=== PATIENT | male | born 1975 | race Caucasian/White ===

== ENCOUNTER 2018-09-08 15:47 | Inpatient (IN) | payer SELFPAY ==
[2018-09-08 18:18] LABS: #Basophils 0.1 thou/uL (0.0-0.2); #Eosinphils 0.4 thou/uL (0.0-0.7); #Lymphocytes 2.6 thou/uL (1.20-3.40); #Monocytes 0.6 thou/uL (0.11-0.59); #Neutrophils 5.7 thou/uL (1.40-6.50); %Basophils 0.8 % (0.0-1.0); %Eosinophils 3.9 % (0.0-10.0); %Lymphocytes 27.9 % (21.0-51.0); %Monocytes 6.2 % (0.0-10.0); %Neutrophils 61.2 % (42.0-75.0); Hemoglobin 14.3 g/dL (14.0-18.0); Mean Corpuscular HGB CONC 35.2 g/dL (32.0-36.0); Mean Corpuscular Hemoglobin 29.7 pg (27.0-31.0); Mean Corpuscular Volume 84.5 fL (78.0-98.0); Mean Platelet Volume 6.8 fL (7.4-10.4); Platelet Count 233 thou/uL (130-400); RBC Distribution Width 12.1 % (11.5-14.5); Red Blood Cell (RBC) Count 4.82 mill/uL (4.70-6.10); White Blood Cell (WBC) Count 9.2 thou/uL (4.8-10.8)
[2018-09-08] MEDS ORDERED: Lorazepam 2 MG/ML VIAL ONE ×2 (18:20→22:53)
[2018-09-08 18:37] LABS: ALT (SGPT) 18 U/L (8-55); AST (SGOT) 15 U/L (5-34); Alkaline Phosphatase 80 U/L (40-150); Anion Gap 15 mmol/L (10-20); BUN (Urea Nitrogen) 13 mg/dL (8.9-20.6); Bilirubin, Total 0.3 mg/dL (0.2-1.2); CK (CPK) 100 U/L (30-200); Calc. Creatinine Clearance 0 mL/min (70-130); Calcium 9.7 mg/dL (7.8-10.44); Carbon Dioxide 24 mmol/L (22-29); Chloride 96 mmol/L (98-107); Estimated GFR-MDRD Greater than 90; Globulin 3.4 g/dL (2.4-3.5); Glucose 216 mg/dL (70-105); Potassium 4.4 mmol/L (3.5-5.1); Protein, Total 7.4 g/dL (6.0-8.3); Sodium 131 mmol/L (136-145)
[2018-09-08 19:44] LABS: Acetaminophen Less than 6.0 mcg/mL (10.0-30.0); Alcohol Less than 10 mg/dL (Less than 10); Salicylate Less than 8.0 mg/dL (15.0-30.0)
[2018-09-08] MEDS ORDERED: Fentanyl 100 MCG/2 ML VIAL ONE (21:44)
[2018-09-08 21:49] LABS: Bilirubin Negative (Negative); Blood, Urine Trace (Negative); Clarity CLEAR (Clear); Glucose, Urine (Dipstick) >=1000 mg/dL (Negative); Leukocyte Negative (Negative); Nitrite Negative (Negative); Protein, Urine (Dipstick) 100 mg/dL (Neg-Trace); Urobilinogen 0.2 mg/dL (0.2-1.0); pH, Urine 5.5 (5.0-9.0)
[2018-09-08 21:51] LABS: Bacteria/HPF None Seen HPF (None Seen); Hyaline Casts/LPF 0-3 HYALINE CAST LPF (0-3 Hyaline); Pathc Cast-AUWi Flag 0.14 (0-2.49); RBC/HPF None Seen HPF (0-3); Squamous Epithelial None Seen HPF (0-3); WBC/HPF None Seen HPF (0-3)
[2018-09-08 21:58] LABS: Amphetamine Not Detected (NotDetected); Barbiturates Screen Not Detected (NotDetected); Benzodiazepine Screen Not Detected (NotDetected); Cocaine Metabolite Screen Not Detected (NotDetected); Medtox Control Line Valid? VALID (VALID); Medtox Reader # READER 4; Methadone Not Detected (NotDetected); Methamphetamine Not Detected (NotDetected); Opiate Screen Detected (NotDetected); Oxycodone Screen Not Detected (NotDetected); Phencyclidine (PCP) Not Detected (NotDetected); THC/Cannabinoid Screen Not Detected (NotDetected); Tricyclic Screen Not Detected (NotDetected)
[2018-09-08] MEDS ORDERED: Morphine 2 MG/ML SYRINGE SLOW IVP PRN (22:26)
[2018-09-08] MEDS ORDERED: traMADol HCl 50 MG TAB PO PRN (22:26)
[2018-09-08] MEDS ORDERED: HYDROcodone/Acetaminophen 10/325 mg Tablet PO PRN ×2 (22:26)
[2018-09-08] MEDS ORDERED: diphenhydrAMINE 50 MG/ML VIAL IVP PRN (22:26)
[2018-09-08] MEDS ORDERED: Ondansetron PF 4 MG/2 ML Vial IVP PRN (22:26)
[2018-09-08] MEDS ORDERED: Promethazine 25 MG TAB PO PRN (22:26)
--- NOTE | 2018-09-08 22:34 | MRI ---
CERVICAL SPINE MRI WITHOUT IV CONTRAST: 09/08/18 HISTORY: 43-year-old male with history of paresthesias of the hands bilaterally, weakness. There is severe generalized narrowing of the AP dimension of the spinal canal of the cervical spine f rom C2 down through C7 and T1. There is generalized disc osteophytosis and facet arthrosis. C2-C3: Moderate central canal and lateral recess stenosis. C3-C4: Severe central spinal canal and lateral recess stenosis and mild bilateral foraminal stenosis. C4-C5: Very severe central spinal canal and moderate lateral recess stenosis and mild bilateral ирина inal stenosis. C5-C6: Prominent central broad based disc osteophyte with very markedly severe central spinal canal s tenosis and severe cord compression. There may be some mild associated myelomalacia at this level. C6-C7: Diffuse disc osteophyte with severe central spinal canal and lateral recess stenosis without s ignificant foraminal stenosis. C7-T1: Central disc osteophyte with severe central spinal canal stenosis and lateral recess stenosis without significant foraminal stenosis. No abnormal marrow signal. Mild sinus mucosal disease. IMPRESSION: Very markedly narrowed AP dimension of the entire cervical spinal canal with multilevel variable chaitanya rity including up to very markedly severe canal and lateral recess stenosis most marked at C5-C6, fol lowed by C4-C5, C6-C7. There is a suggestion of mild myelomalacia at C5-C6. There is indention of the spinal cord at almost all levels with actual compressive changes of the spinal cord most marked at C 5-C6 followed by C6-C7. POS: [facility]
--- NOTE | 2018-09-08 22:49 | MRI ---
THORACIC SPINE MRI WITHOUT IV CONTRAST: 09/08/18 HISTORY: 43-year-old male with history of leg paralysis and numbness, T10 and below. Multiplanar and multisequence MRI examination of the thoracic spine is performed. No evidence for abn ormal marrow signal. There is overall generalized narrowing of the AP dimension of the thoracic spine spinal canal. There is multilevel disc osteophytosis as well as multilevel posterior ligamentum flav um hypertrophic changes resulting in multilevel variable severity canal stenosis. There is mild steno sis at T1-T2 and T2-T3 with more moderate stenosis particularly in the left paracentral aspect at T3- T4. Generalized lateral recess stenosis at T4-T5. Severe left lateral recess stenosis from prominent disc osteophyte at T5-T6 with some left foraminal stenosis. Central disc osteophyte at T6-T7 with mil d central canal stenosis. Prominent left paracentral disc osteophyte at T7-T8 with left lateral reces s stenosis. Central disc osteophyte at T7-T8 with moderate to severe central spinal canal stenosis an d some indention of the spinal cord. At T9-T10, there is left paracentral and right paracentral disc osteophytes with moderate to severe central canal and lateral recess stenosis and evidence for right foraminal stenosis. At T10-T11, there is prominent facet arthrosis with severe lateral recess stenosi s left greater than right. T11-T12 level is unremarkable. IMPRESSION: Overall fairly severe generalized narrowing of the AP dimension of the spinal canal with extensive mu ltilevel disc osteophytosis and facet arthrosis and ligamentum flavum hypertrophic changes with varia ble severity up to severe central canal, lateral recess, and foraminal stenosis at multiple levels th roughout the entire thoracic spine with sparing of the T11-T12 region. No spinal cord mass. No abnorm al marrow signal. POS: [facility]
[2018-09-08] MEDS ORDERED: Dexamethasone 4 mg/ml Vial ONE (22:53)
[2018-09-08 22:59] LABS: INR-International Normal Ratio 0.9; PTT 30.5 SEC (22.9-36.1); Prothrombin Time 12.5 SEC (12.0-14.7)
[2018-09-09] MEDS: Sodium Chloride 0.9% 1,000 ML IV SCH ×2 (00:30→18:53)
[2018-09-09] MEDS: Dexamethasone 4 mg/ml Vial SLOW IVP SCH ×3 (00:37→11:43)
[2018-09-09 01:06] VITALS: BMI 25.5
--- NOTE | 2018-09-09 01:29 | HP ---
HISTORY OF PRESENT ILLNESS: The patient is a 43-year-old male with past medical history of diabetes, who presents for evaluation of bilateral upper and lower extremity dysesthesias and difficulty walking. The patient reports 1 month ago, he had gradual onset of dysesthesias along the bilateral forearms and bilateral C6 pattern as well as throughout the lower extremities. This is also associated with mild weakness. He reports these symptoms have been progressing over the past month, but significantly worsened today when he tried to get out of bed at 1300 this afternoon. He reports he was unable to get out of bed. He suddenly slumped to the floor. He denies any bowel or bladder issues. He also reports some worsening of the symptoms with electric shock type sensation down the extremities with extension of his neck. He has been evaluated with MRI imaging of the cervical and thoracic spine in the emergency department and found to have significant and severe stenosis at C5-C6. PAST MEDICAL HISTORY: Type 2 diabetes. PAST SURGICAL HISTORY: SI joint fusion. SOCIAL HISTORY: The patient is a smoker. He does not drink or use any drugs. REVIEW OF SYSTEMS: Per HPI. ALLERGIES: HE HAS NO KNOWN DRUG ALLERGIES. PHYSICAL EXAMINATION: VITAL SIGNS: BP is 132/82, respirations 18, the patient is 98% on room air, pulse is 97, temperature is 98.6. CONSTITUTIONAL: Agitated. HEENT: Head is normocephalic, atraumatic. Eyes, PERRLA. Extraocular movements intact. ENT; oral mucosa is pink, intact, and moist. The patient has normal voice. NECK: Nontender to palpation. I did not attempt range of motion considering reproduction of his symptoms. RESPIRATORY: Symmetric chest expansion. No evidence of dyspnea. CARDIOVASCULAR: Regular rate and rhythm. MUSCULOSKELETAL: Good muscle tone in the bilateral upper and lower extremities. 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 He is, otherwise, 5/5 throughout the remainder of the upper extremities, biceps, triceps, and deltoid. He is slightly hyperreflexic over the triceps and biceps. He has a positive Lamberto sign over the lower extremities. He is significantly weak throughout 2/5 with plantar flexion, dorsiflexion, and over the proximal legs bilaterally. This is symmetric. He is slightly hyperreflexic over bilateral knee jerk reflexes. Negative clonus. NEUROLOGIC: A and O x4. He has significant weakness in the lower extremities and slight weakness in the upper extremities per my musculoskeletal exam. ASSESSMENT AND PLAN: This is a 43-year-old male with progressive dysesthesias of the upper extremities and lower extremities with significantly worsening weakness this afternoon. He was found to have severe stenosis at C5- C6. He also has cervical and thoracic stenosis to a lesser degree and multilevel degenerative disk disease at other levels. I will plan to admit the patient to the Med/Surg service where he will be treated with 10 mg of IV Decadron now and 4 q.6. I have also made the patient n.p.o. tonight. The patient is significantly agitated and wants to go outside to use tobacco products. I have prescribed him a nicotine patch as well as p.r.n. Ativan. We will consult the hospitalist for assistance in medical management. I have discussed this plan with Dr. Leigh, who is in agreement. Job ID: [id number] MTDD
--- NOTE | 2018-09-09 03:20 | CON ---
DATE OF CONSULTATION: CHIEF COMPLAINT: Acute weakness in the lower extremities. HISTORY OF PRESENT ILLNESS: The patient was somewhat sleepy. Had some difficulty giving us full medical history. The patient reports that he went to sleep, he woke up, his belly was spasming. He felt like his muscles across the top were spasming. There was no back pain or accidents recently to a certain extent. He reports he has developed sudden-onset weakness. He cannot tell if he can urinate, but there is no incontinence. The patient reports that he developed sudden onset of weakness in both lower extremities along with some numbness and ER physician stated that when he lifted his neck, he felt weird. He also stated that the patient had some numbness in the extremities as well. The patient received Ativan, therefore, he was sleepy by the time we were seeing the patient. PREVIOUS MEDICAL HISTORY: Positive for diabetes for 20 years with [id number] diabetes. SOCIAL HISTORY: He smokes 2 packs a day for 20 years. No alcohol. 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 There is no history of any drug use. FAMILY HISTORY: Negative for neurological disorders. Mother is 68. Father and the details of his health are unknown. He has 1 brother and 2 sisters. There is no history of diabetes or CVA. Lab workup at the time of my initial evaluation of this patient, the patient had CBC and Chem-20, all of which were within normal limits except for blood sugar, which was 255 and his urine tox was pending at that time. REVIEW OF SYSTEMS: Not very reliable, but neurological, positive for weakness. PHYSICAL EXAMINATION: VITAL SIGNS: His vital signs were per ER chart and they were reviewed, and they were within normal limits. GENERAL APPEARANCE: Well-built, well-nourished man, too sleepy, but wakes up and follow commands. Higher intellectual functions. Oriented to time, place, and person, but not very cooperative. There is a 2 x 2 cm right foot ulcer in the sole of his foot. CHEST: Clear vesicular breathing. CARDIOVASCULAR: Normal. NEUROLOGIC: Higher intellectual functions; somewhat sleepy patient, but oriented to place, person, and time. Cranial nerve examination 2 through 12 within normal limits. Pupils are reactive. No facial asymmetry noted and difficult to assess sensation. Normal hearing. The patient did not open his mouth well, tongue seems to be midline. Motor exam; bulk normal, tone is normal. Strength 4+ to 5-/5 in upper extremities. Difficult to assess individual muscle groups. He keeps falling asleep or has decreased effort. MUSCULOSKELETAL: Lower extremities, he is unable to raise his legs against gravity and sensory examination, he has a sensory level around T4 and his deep tendon reflexes were 1+ throughout. IMPRESSION: The patient with abnormal sensation and sudden onset of bilateral lower extremity weakness without any recent trauma or back pain. His examination showed a sensory level around T4 and significant weakness in both lower extremities and his sensory level at about T4 consistent with acute cord compression. Immediately, I requested that he have MRI of the cervical and thoracic spine, which was completed at the time of this dictation. I have also spoken to the ER physician, the patient had severe generalized narrowing of the AP dimension of the spinal canal with extensive multilevel disk osteophytosis and facet arthrosis and ligamentum flavum with variable severity with severe central canal lateral recess and foraminal stenosis at multiple levels throughout the entire thoracic spine including T11 to T12 region and his C-spine MRI shows acute very marked narrowed AP dimension of the entire cervical spine canal with multilevel variable severity including up to a markedly severe canal and lateral recess stenosis, most markedly at C5-C6, followed by C4-C5, C6-C7 with suggestion of mild myelomalacia at C5-C6. There is indentation of the spinal cord at almost all levels with actual compression of the spinal cord, most markedly at C5-C6, followed by C6-C7. I spoke to the ER physician and the patient was apparently taken to surgery. Please call Neurology if you have any further questions or concerns with this patient. Job ID: [id number] [facility]
[2018-09-09] MEDS: Lorazepam 2 MG/ML VIAL SLOW IVP PRN ×3 (05:00→23:48)
[2018-09-09] MEDS: Nicotine 21 MG PATCH TD SCH (08:35)
[2018-09-09] MEDS ORDERED: CEFAZOLIN 2 GM/50 ML-DEXTROSE 2 GM in Premix Bag 1 BAG IVPB SCH (13:15)
--- NOTE | 2018-09-09 15:00 | CON ---
DATE OF CONSULTATION: 09/09/2018 SUBJECTIVE: The patient was seen and examined. I agree with Noelle Wang's evaluation on 09/08/2018. The patient is a 43-year-old man with diabetes, who has not had a significant past spinal history, although he does get chiropractic adjustments. Two nights ago, he woke up with significant difficulties with walking and using his arms. His physical exam is consistent with fairly severe cervical myelopathy. Imaging of the cervical and thoracic spine reveals congenital spinal stenosis throughout the spine. While he has multiple lesions, the severe cervical stenosis is most pronounced between C5 and C7, and I suspect this is the cause of the current symptoms. I would recommend expeditious proceeding with decompression and stabilization from C5-C7 via both anterior and posterior approaches. We discussed the indication, risks, benefits, and alternatives of C5-C7 anterior and posterior decompression and fusion with him and his and they expressed understanding, wished to proceed. They understand this may not change the current myelopathy but should prevent further damage in the future. Job ID: [id number]
--- NOTE | 2018-09-09 15:01 | PDOC.PN ---
- Subjective Encounter Start Date: 09/09/18 Encounter Start Time: 11:00 Pt seen for management of medical comorbidities, including hyponatremia and diabetes mellitus. Denies chest pain. c/o pain in extremities. - Objective MAR Reviewed: Yes Vital Signs & Weight: Vital Signs (12 hours) Temp Pulse Resp BP Pulse Ox 09/09/18 11:03 98.5 F 120 H 18 124/72 97 09/09/18 08:00 96 09/09/18 07:43 98.1 F 113 H 16 135/87 96 09/09/18 04:45 98.2 F 98 16 140/82 99 09/09/18 04:00 98.2 F 99 16 144/86 H 99 Weight Weight 227 lb I&O: 09/08/18 09/09/18 09/10/18 06:59 06:59 06:59 Intake Total 451.5 Balance 451.5 Result Diagrams: 09/08/18 18:09 09/08/18 18:09 Additional Labs: Accuchecks 09/08/18 16:43 POC Glucose 255 H labs reviewed by me Phys Exam - Physical Examination Constitutional: NAD HEENT: moist MMs Neck: supple Respiratory: clear to auscultation bilateral Cardiovascular: RRR Gastrointestinal: soft weakness in all four extremities Psychiatric: normal affect Dx/Plan (1) Hyponatremia Code(s): E87.1 - HYPO-OSMOLALITY AND HYPONATREMIA Status: Acute Comment: mild, likely asymptomatic (2) Spinal stenosis in cervical region Code(s): M48.02 - SPINAL STENOSIS, CERVICAL REGION Status: Acute Comment: pt is admitted under neurosurgery (3) DM2 (diabetes mellitus, type 2) Status: Chronic Comment: start accuchecks, insulin sliding scale (pt takes janumet at home). - Plan * . Review of Systems - Review of Systems Cardiovascular: negative: chest pain, palpitations, orthopnea, paroxysmal nocturnal dyspnea, edema, light headedness Musculoskeletal: Arm Pain, Leg Pain Neurological: Weakness, Numbness. negative: Incoordination, Change in Speech, Confusion, Seizures - Medications/Allergies Allergies/Adverse Reactions: Allergies Allergy/AdvReac Type Severity Reaction Status Date / Time No Known Drug Allergies Allergy Verified 09/09/18 04:57 Medications: Current Medications Hydrocodone Bitart/Acetaminophen ([place] 10/325) 1 tab PO Q4H PRN PRN Reason: Mild Pain (1-3) Hydrocodone Bitart/Acetaminophen ([place] 10/325) 2 tab PO Q4H PRN PRN Reason: Moderate Pain (4-6) Al Hydroxide/Mg Hydroxide (Maalox) 30 ml PO Q4H PRN PRN Reason: Indigestion Dexamethasone (Decadron) 4 mg SLOW IVP Q6HR [facility] Last Admin: 09/09/18 11:43 Dose: 4 mg Diphenhydramine HCl (Benadryl) 25 mg IVP Q6H PRN PRN Reason: Itching Sodium Chloride (Normal Saline 0.9%) 1,000 mls @ 75 mls/hr IV .[id number] [facility] Last Admin: 09/09/18 00:30 Dose: 1,000 mls Cefazolin Sodium/Dextrose 2 gm (/ Device) 50 mls @ 100 mls/hr IVPB [facility] Stop: 09/10/18 13:16 Lorazepam (Ativan) 1 mg SLOW IVP Q4H PRN PRN Reason: Anxiety/Agitation Last Admin: 09/09/18 12:00 Dose: 1 mg Magnesium Hydroxide (Milk Of Magnesium) 30 ml PO Q12H PRN PRN Reason: Constipation Morphine Sulfate (Morphine) 2 mg SLOW IVP Q1H PRN PRN Reason: Moderate Breakthrough Pain Nicotine (Nicoderm Patch) 21 mg TD DAILY [facility] Last Admin: 09/09/18 08:35 Dose: 21 mg Ondansetron HCl (Zofran) 4 mg IVP DAILYPRN PRN PRN Reason: Nausea Promethazine HCl (Phenergan) 12.5 mg PO Q4H PRN PRN Reason: Nausea/Vomiting Sodium Chloride (Flush - Normal Saline) 10 ml IVF PRN PRN PRN Reason: Saline Flush Tizanidine HCl (Zanaflex) 4 mg PO Q6H PRN PRN Reason: Muscle Spasm Tramadol HCl (Ultram) 50 mg PO Q6H PRN PRN Reason: Mild Pain (1-3)
[2018-09-09] MEDS ORDERED: Dextrose 50% Abboject 50 ML SYRINGE SLOW IVP PRN (15:03)
[2018-09-09] MEDS ORDERED: Dextrose 5% in Water 1,000 ML IV PRN (15:03)
[2018-09-09] MEDS: tiZANidine HCl 4 MG TAB PO PRN ×2 (16:35→23:49)
[2018-09-09] MEDS: HumaLOG 300 UNITS/3 ML VIAL SC PRN (21:42)
[2018-09-10] MEDS: HumaLOG 300 UNITS/3 ML VIAL SC PRN ×3 (06:02→20:57)
[2018-09-10] MEDS: Sodium Chloride 0.9% 1,000 ML IV SCH ×2 (06:43→19:45)
[2018-09-10] MEDS ORDERED: Bacitracin Zinc Ointment 30 gm TUBE ONE (06:57)
[2018-09-10] MEDS ORDERED: Fentanyl 250 MCG/5 ML VIAL ONE (07:20)
[2018-09-10] MEDS ORDERED: Insulin Regular 300 UNITS/3 ML VIAL ONE (08:14)
[2018-09-10] MEDS ORDERED: CEFAZOLIN 2 GM/50 ML BAG ONE (08:16)
[2018-09-10] MEDS: Gabapentin 400 MG CAP PO SCH ×3 (09:45→21:14)
[2018-09-10] MEDS: metFORMIN 500 MG TAB PO SCH ×2 (09:45→17:53)
[2018-09-10] MEDS: Nicotine 21 MG PATCH TD SCH (09:45)
[2018-09-10] MEDS: Alogliptin 6.25 MG TAB PO SCH (09:45)
[2018-09-10] MEDS ORDERED: Fentanyl 100 MCG/2 ML VIAL ONE ×2 (11:45→13:08)
[2018-09-10] MEDS ORDERED: Ondansetron HCl/PF 4 MG/2 ML Vial IVP PRN (11:53)
[2018-09-10] MEDS ORDERED: HYDROmorphone 2 MG/ML VIAL SLOW IVP PRN (11:53)
[2018-09-10] MEDS ORDERED: Promethazine HCl 25 MG/ML VIAL IM PRN (11:53)
[2018-09-10] MEDS ORDERED: Promethazine HCl 25 MG/ML VIAL SLOW IVP PRN (11:53)
[2018-09-10] MEDS ORDERED: HYDROmorphone 2 MG/ML VIAL ONE (12:08)
[2018-09-10] MEDS ORDERED: HumaLOG 300 UNITS/3 ML VIAL ONE (12:33)
[2018-09-10] MEDS ORDERED: Dexamethasone 20 MG/5 ML VIAL ONE (12:38)
[2018-09-10] MEDS ORDERED: PROPOFOL 200 MG/20 ML VIAL ONE (12:38)
[2018-09-10] MEDS ORDERED: PHENYLEPHRINE-NS 100 MCG/ML 10 ML SYRINGE ONE (12:38)
[2018-09-10] MEDS ORDERED: Lidocaine 1% PF 5 ML VIAL ONE (12:38)
[2018-09-10] MEDS ORDERED: Glycopyrrolate 0.2 MG/ML 5 ML SYRINGE ONE (12:38)
[2018-09-10] MEDS ORDERED: Acetaminophen/Codeine 30-300mg Tablet PO PRN ×2 (13:00)
[2018-09-10] MEDS ORDERED: HYDROcodone/Acetaminophen 10/325 mg Tablet PO PRN (13:00)
[2018-09-10] MEDS ORDERED: CEFAZOLIN/Water 2 GM/20 ML SYRINGE SLOW IVP SCH (13:15)
--- NOTE | 2018-09-10 13:30 | OP ---
DATE OF PROCEDURE: 09/10/2018 NETWORK ENGINEERING ADVISOR: Willian. PROCEDURES PERFORMED: Anterior cervical diskectomy, C5 through C7, interbody arthrodesis, intervertebral biomechanical device, local morselized autograft, demineralized bone matrix, anterior-titanium instrumentation, C5-C7; posterior approach C5-C7 laminectomies, posterolateral arthrodesis, lateral mass screw instrumentation, C5-C7, demineralized bone matrix, local morselized autograft. DESCRIPTION OF PROCEDURE: The patient was brought to the operating room and intubated. He was positioned supine with the head in the modest extension on a gel-filled donut. An incision was made in the right precervical area and dissected medial to the sternocleidomastoid muscle, identified the anterior cervical spinal, and the level was confirmed by x-ray. We debrided the anterior osteophytes, placed distraction across the disk spaces, and using operative microscope and microdissection technique, completely removed the C5-C6 and C6-C7 disk down to the level of the dura completely decompressing the spinal cord. The bony endplates were then decorticated for the purpose of arthrodesis and appropriate-sized intervertebral biomechanical PEEK device was brought into field and filled with demineralized bone matrix, local morselized autograft, and tapped in place securely at C5-C6 and C6-C7. Next, an anterior plate was brought into the field and secured it to C5, C6 and C7 using two 14 mm screws at each level. The wound was then extensively irrigated and maximum hemostasis was secured, and the wound was closed in anatomic layers over drain. The patient was then rolled in a prone position with the head fixed in a [place] head of research & insights on gel-filled chest rolls on a separate operating room table. A midline posterior cervical incision was made and the C5 through C7 levels were identified. We performed complete C7, complete C6, and complete C5 laminectomy, and completely decompressing the spinal cord from this direction. Lateral mass screws were then placed at C5, C6, and C7. The delores was secured between the screws connected by nuts, which were final tightened. The wound was then extensively irrigated and maximum hemostasis was secured. Combination of demineralized bone matrix and local morselized autograft was laid over the left lamina posterolateral surfaces of the purpose of arthrodesis. Vancomycin powder was applied and the wound was then closed in anatomic layers. Job ID: [id number] [facility]
[2018-09-10] MEDS: Morphine 4 MG/ML VIAL IV PRN (15:04)
[2018-09-10] MEDS ORDERED: Dextrose 50% Abboject 50 ML SYRINGE SLOW IVP PRN (16:34)
[2018-09-10] MEDS ORDERED: Dextrose 5% in Water 1,000 ML IV PRN (16:34)
--- NOTE | 2018-09-10 17:26 | PRG ---
DATE OF SERVICE: 09/10/2018 SUBJECTIVE: The patient is seen and examined at bedside. He had surgery done by Dr. Leigh today. This was an anterior cervical diskectomy. OBJECTIVE: VITAL SIGNS: Blood pressure is 150/88, pulse is 102, temperature 97.3, and O2 saturation is 97 on room air. GENERAL: He is quite drowsy, but he is arousable. He is in quite a bit of pain. He has dressing on his neck. LUNGS: Clear. HEART: S1 and S2, normal. No S3. No S4. ABDOMEN: Soft, nontender, nondistended. EXTREMITIES: No clubbing, cyanosis, or edema. NEUROLOGIC: Postponed since he is in quite a bit of pain during my visit. LABORATORY DATA: Glycemia is ranging from 281 to 486. IMPRESSION: 1. Diabetes mellitus, not controlled since he had steroids. We are going to change his sliding scale to aggressive sliding scale. We will use Glucerna for his nutrition at this point, I am going to continue his diabetic pills, which are alogliptin. If he is still hyperglycemic with this regimen, we will have to add long-acting insulin tomorrow. We will continue his pain management as ordered by Dr. Leigh. 2. Congenital spinal stenosis throughout the spine, cervical and thoracic, status post diskectomy and decompression. 3. Hyponatremia and hypochloremia, mild, probably just volume depletion. PLAN: As mentioned above. Job ID: [id number]
[2018-09-10] MEDS: Ketorolac Tromethamine 30 MG/ML VIAL IVP SCH ×2 (17:53→23:04)
[2018-09-10] MEDS ORDERED: CEFAZOLIN 2 GM/50 ML-DEXTROSE 2 GM in Premix Bag 1 BAG IVPB SCH (18:00)
[2018-09-10] MEDS: HYDROcodone/Acetaminophen 10/325 mg Tablet PO PRN (20:41)
[2018-09-10] MEDS: Morphine 4 MG/ML VIAL SLOW IVP PRN ×2 (20:41→23:05)
[2018-09-11] MEDS: HYDROcodone/Acetaminophen 10/325 mg Tablet PO PRN ×3 (02:53→20:46)
[2018-09-11] MEDS: Morphine 4 MG/ML VIAL SLOW IVP PRN ×2 (02:53→22:47)
[2018-09-11] MEDS: Sodium Chloride 0.9% 1,000 ML IV SCH ×2 (04:30→14:36)
[2018-09-11] MEDS: Ketorolac Tromethamine 30 MG/ML VIAL IVP SCH ×3 (06:04→18:13)
[2018-09-11] MEDS: CEFAZOLIN 2 GM/50 ML-DEXTROSE 2 GM in Premix Bag 1 BAG IVPB SCH ×3 (06:04→20:32)
[2018-09-11] MEDS: HumaLOG 300 UNITS/3 ML VIAL SC PRN ×3 (06:04→20:42)
[2018-09-11] MEDS: metFORMIN 500 MG TAB PO SCH ×2 (08:23→18:15)
[2018-09-11] MEDS: Gabapentin 400 MG CAP PO SCH ×3 (08:24→20:31)
[2018-09-11] MEDS: Alogliptin 6.25 MG TAB PO SCH (08:24)
[2018-09-11] MEDS: Nicotine 21 MG PATCH TD SCH (08:29)
[2018-09-11] MEDS: Morphine 4 MG/ML VIAL IV PRN (09:07)
[2018-09-11] MEDS ORDERED: Insulin Glargine 20 UNITS in Pre-Filled Syringe 1 EACH SC SCH ×2 (11:11→11:15)
--- NOTE | 2018-09-11 11:32 | PRG ---
DATE OF SERVICE: 09/11/2018 SUBJECTIVE: The patient is seen and examined at the bedside. He feels slightly better today. He was able to participate in physical therapy session. OBJECTIVE: VITAL SIGNS: Blood pressure is 149/82, pulse is 91, temperature is 97.4, respirations 12, O2 saturation is 99 on room air. HEENT: His head is atraumatic and normocephalic. Eyes are PERRLA. Sclerae nonicteric. Oral mucosa is somewhat dry. NECK: With the dressing. LUNGS: Clear. HEART: S1, S2 normal. ABDOMEN: Soft, nontender. EXTREMITIES: No clubbing, cyanosis, or edema. NEUROLOGIC: He is able to answer my questions. He follows my commands. He moves his all 4 extremities. LABORATORY DATA: Glycemia is up to above 300, almost consistently now. The patient received big doses of steroids before. IMPRESSION: 1. Uncontrolled diabetes mellitus secondary to current steroid use and surgery. His glycemia is ranging from 320 to 370 despite of aggressive sliding scale. I will introduce 20 units of insulin Lantus this morning and we will continue aggressive sliding scale. 2. Congenital spinal stenosis throughout the spine, cervical and thoracic, status post diskectomy and decompression. 3. Hyponatremia, hypochloremia. PLAN: As mentioned above. Job ID: [id number]
--- NOTE | 2018-09-11 12:12 | PRG ---
DATE OF SERVICE: 09/11/2018 SUBJECTIVE: Mr. Harrison is postoperative day #1, having undergone staged procedure of C5 to C7 ACDF and posterior laminectomy C5 to C7 with instrumentation. He complains of neck pain, but states he feels stronger in his legs postoperatively. He does have arm pain as well, but believes that he may be stronger and that this has slightly improved since surgery. He appears to have good strength in bilateral legs and mild to moderate right arm weakness, mild left arm weakness and mild weakness in bilateral aviation program manager strength. Given drain output, we would like to keep both drains in place today and we will keep him on antibiotics. He will continue to work with PT and OT and may need rehab postoperative. Otherwise, we will continue to manage his pain control postoperatively. Please call with any change in the patient's neurologic status, otherwise he is progressing well. Job ID: [id number] MTDD
[2018-09-11] MEDS: tiZANidine HCl 4 MG TAB PO PRN (22:22)
[2018-09-11] MEDS: Mag-Al 1200 mg/1200 mg/30 ML UDCUP PO PRN (22:37)
[2018-09-12] MEDS: Ketorolac Tromethamine 30 MG/ML VIAL IVP SCH ×3 (01:07→12:28)
[2018-09-12] MEDS: HYDROcodone/Acetaminophen 10/325 mg Tablet PO PRN ×3 (01:17→21:35)
[2018-09-12] MEDS: Mag-Al 1200 mg/1200 mg/30 ML UDCUP PO PRN (03:48)
[2018-09-12] MEDS: Milk Of Magnesia 30 ML UDCUP PO PRN ×2 (03:50→21:35)
[2018-09-12] MEDS: Sodium Chloride 0.9% 1,000 ML IV SCH ×2 (04:29→15:39)
[2018-09-12] MEDS: CEFAZOLIN 2 GM/50 ML-DEXTROSE 2 GM in Premix Bag 1 BAG IVPB SCH ×2 (05:20→12:29)
[2018-09-12] MEDS: HumaLOG 300 UNITS/3 ML VIAL SC PRN ×3 (06:30→21:41)
[2018-09-12] MEDS: Alogliptin 6.25 MG TAB PO SCH (08:24)
[2018-09-12] MEDS: Gabapentin 400 MG CAP PO SCH ×3 (08:25→21:37)
[2018-09-12] MEDS: metFORMIN 500 MG TAB PO SCH ×2 (08:25→16:51)
[2018-09-12] MEDS: Nicotine 21 MG PATCH TD SCH (08:28)
[2018-09-12] MEDS ORDERED: Insulin Glargine 20 UNITS in Pre-Filled Syringe 1 EACH SC SCH (09:00)
[2018-09-12] MEDS: Insulin Glargine 40 UNITS in Pre-Filled Syringe 1 EACH SC SCH (10:47)
--- NOTE | 2018-09-12 12:30 | PRG ---
DATE OF SERVICE: 09/12/2018 SUBJECTIVE: I have come by to see Mr. Harrison twice today, and he was out of the room both times. I suspect he is downstairs smoking. Nevertheless, I think this is a testament to the fact that he is doing really well postoperative from his anterior-posterior decompression fusion. Had he been here this morning, I likely would have removed his anterior drain, given that he has only put out 10 mL over the last 12 hours. His posterior drain has put out approximately 40 mL over the last 12 hours. I suppose these can both be removed tomorrow. He has other metabolic issues which are being managed. His last sodium was 131 on September 08; however, he has been taking in good oral intake. He has demonstrated no findings for hyponatremia at this time. Job ID: [id number]
--- NOTE | 2018-09-12 13:20 | PRG ---
DATE OF SERVICE: 09/12/2018 SUBJECTIVE: The patient is seen and examined at the bedside. He is still running high glucose levels on his Accu-Cheks. This is again secondary to high dose of steroids he was getting prior to the surgery. OBJECTIVE: VITAL SIGNS: Blood pressure is 133/84, pulse is 98, temperature is 97.9, respirations 20, O2 saturation 97% on room air. HEENT: His pupils are responding to light properly. Sclerae are nonicteric. Conjunctivae pinkish. NECK: Covered with a dressing. LUNGS: Clear. HEART: S1 and S2 normal. ABDOMEN: Soft, nontender. EXTREMITIES: No clubbing, cyanosis, or edema. NEUROLOGIC: He is alert and oriented x4. There are no any motor deficits. In his right upper extremity, he complains about some numbness postsurgery. LABORATORY DATA: Glycemia is ranging from 235 to 348. IMPRESSION: 1. Uncontrolled diabetes secondary to steroid use prior to the surgery. Still a big challenge. We will go up on the dose on Lantus to 20 units twice a day with aggressive sliding scale along with his oral medications. 2. Congenital spinal stenosis throughout the spine, cervical and thoracic, status post diskectomy and decompression, doing better. 3. Hyponatremia and hypokalemia. We will obtain chemistry to check the status on his sodium and chloride levels. Job ID: [id number]
[2018-09-12 17:22] LABS: Anion Gap 13 mmol/L (10-20); BUN (Urea Nitrogen) 18 mg/dL (8.9-20.6); Calc. Creatinine Clearance 165 mL/min (70-130); Calcium 8.7 mg/dL (7.8-10.44); Carbon Dioxide 28 mmol/L (22-29); Chloride 97 mmol/L (98-107); Estimated GFR-MDRD Greater than 90; Glucose 222 mg/dL (70-105); Sodium 134 mmol/L (136-145)
[2018-09-13] MEDS: CEFAZOLIN 2 GM/50 ML-DEXTROSE 2 GM in Premix Bag 1 BAG IVPB SCH (00:28)
[2018-09-13] MEDS: tiZANidine HCl 4 MG TAB PO PRN ×2 (01:19→23:48)
[2018-09-13] MEDS: Morphine 4 MG/ML VIAL SLOW IVP PRN ×2 (01:40→23:48)
[2018-09-13] MEDS: HumaLOG 300 UNITS/3 ML VIAL SC PRN ×3 (07:33→20:20)
[2018-09-13] MEDS: HYDROcodone/Acetaminophen 10/325 mg Tablet PO PRN ×3 (07:37→20:17)
[2018-09-13] MEDS: Sodium Chloride 0.9% 1,000 ML IV SCH ×2 (07:55→20:55)
[2018-09-13] MEDS ORDERED: CEFAZOLIN 2 GM/50 ML-DEXTROSE 2 GM in Premix Bag 1 BAG IVPB SCH (08:00)
[2018-09-13] MEDS: metFORMIN 500 MG TAB PO SCH ×2 (08:36→17:53)
[2018-09-13] MEDS: Alogliptin 6.25 MG TAB PO SCH (08:36)
[2018-09-13] MEDS: Nicotine 21 MG PATCH TD SCH (08:37)
[2018-09-13] MEDS: Gabapentin 400 MG CAP PO SCH ×3 (08:37→20:18)
[2018-09-13] MEDS: Cephalexin 250 MG CAP PO SCH ×4 (08:58→20:18)
[2018-09-13] MEDS: Insulin Glargine 40 UNITS in Pre-Filled Syringe 1 EACH SC SCH (08:59)
--- NOTE | 2018-09-13 12:58 | PRG ---
DATE OF SERVICE: SUBJECTIVE: The patient is seen and examined at bedside. He is gradually getting better. His pain level is improved. There were no any unexpected events overnight. OBJECTIVE: VITAL SIGNS: Blood pressure is 167/93, pulse is 102, respiratory rate is 20, O2 saturation is 94, and temperature is 97.8. HEENT: His pupils responding to light properly. Sclerae nonicteric. Oral mucosa is moist. NECK: Covered with a dressing. Apparently, the drain was removed this morning. LUNGS: Clear. HEART: S1 and S2 normal. No S3. No S4. No murmur. ABDOMEN: Soft, nontender. Bowel sounds are present. No organomegaly. EXTREMITIES: No clubbing, cyanosis, or edema. NEUROLOGIC: He is able to move all four extremities. There is no motor deficit as far as I can see neurological examination as above. LABORATORY DATA: Glycemia is fluctuating from 198 to 348. IMPRESSION: 1. Hyperglycemia secondary to diabetes plus use of IV steroids prior to surgery, still running high despite high dose of long-acting and short-acting insulin use. The only way to control this would be most likely use insulin drip. He is on 40 units of insulin Lantus every morning at this point and will continue sliding scale. 2. Congenital spinal stenosis throughout the spine, cervical, and thoracic, status post diskectomy and decompression, gradually doing better. 3. Hyponatremia and hypokalemia, improved. Apparently, there was a problem with insurance, which does not allow him to go to the rehab in [place] only, works in I believe [place]. We will try to a work on his glycemia as long as he is in the hospital. Job ID: [id number]
[2018-09-13] MEDS: Milk Of Magnesia 30 ML UDCUP PO PRN (20:25)
[2018-09-14] MEDS: HYDROcodone/Acetaminophen 10/325 mg Tablet PO PRN ×2 (05:24→13:15)
[2018-09-14] MEDS: HumaLOG 300 UNITS/3 ML VIAL SC PRN ×4 (06:15→23:35)
--- NOTE | 2018-09-14 07:06 | PRG ---
DATE OF SERVICE: 09/14/2018 SUBJECTIVE: The patient is a 43-year-old male, status post anterior-posterior decompression and fusion at C5-C6, postoperative day #4. Following his surgery, he was transitioned to the [facility] floor, where his pain has been well controlled with p.o. medications. He is tolerating a regular diet and voiding appropriately. His CAMILA output trended down nicely, and this was removed yesterday. He has continued to work with physical therapy in the department, and he has made significant improvements since now, walking short distances in the hallway. Yesterday, I discussed with case management, the status of inpatient rehabilitation; however, the situation is complicated by patient's insurance, which is based out of [place]. They will continue to investigate this today. However, considering the patient's significant improvement, he may be able to return home over the next few days, if inpatient rehabilitation is not an option. The patient is awake, alert, in no acute distress. He has free active range of motion of upper extremities and 5/5 strength. He has improved range of motion in the lower extremities with leg strength 4-/5 throughout. Sensation is intact to light touch throughout. We will continue to have the patient work with physical therapy daily. I will discuss with Case Management about status of inpatient rehabilitation. However, as mentioned before, the patient may be able to transition home, which is not an option. Job ID: [id number]
[2018-09-14] MEDS: Insulin Glargine 40 UNITS in Pre-Filled Syringe 1 EACH SC SCH (08:41)
[2018-09-14] MEDS: Cephalexin 250 MG CAP PO SCH ×4 (08:41→23:35)
[2018-09-14] MEDS: Alogliptin 6.25 MG TAB PO SCH (08:41)
[2018-09-14] MEDS: metFORMIN 500 MG TAB PO SCH ×2 (08:41→16:42)
[2018-09-14] MEDS: Nicotine 21 MG PATCH TD SCH (08:42)
[2018-09-14] MEDS: Gabapentin 400 MG CAP PO SCH ×3 (08:44→23:35)
[2018-09-14] MEDS: tiZANidine HCl 4 MG TAB PO PRN ×2 (08:46→23:35)
[2018-09-14] MEDS: Sodium Chloride 0.9% 1,000 ML IV SCH ×2 (08:54→23:52)
[2018-09-14] MEDS ORDERED: Bisacodyl 10 MG SUPP PR PRN (13:24)
[2018-09-14] MEDS ORDERED: Fleet Enema 133 ML BOT PR SCH (14:00)
[2018-09-14] MEDS ORDERED: Magnesium Citrate 300 ML BOT PO SCH (14:30)
--- NOTE | 2018-09-14 22:33 | PDOC.PN ---
- Subjective Encounter Start Date: 09/14/18 Encounter Start Time: 18:00 Late entry note. Patient notes constipation. I spoke with nurse earlier today, meds added. One small BM this evening. Feels less distended. Pain control postop fair. - Objective Vital Signs & Weight: Vital Signs (12 hours) Temp Pulse Resp BP Pulse Ox 09/14/18 20:41 98.4 F 103 H 20 162/93 H 100 09/14/18 20:10 100 09/14/18 15:20 97.6 F 93 18 153/88 H 98 09/14/18 12:10 98.3 F 109 H 20 112/77 96 Weight Weight 227 lb I&O: 09/13/18 09/14/18 09/15/18 06:59 06:59 06:59 Intake Total 340 1280 1930 Output Total 1660 250 Balance -1320 1030 1930 Result Diagrams: 09/08/18 18:09 09/12/18 16:37 Additional Labs: Accuchecks 09/14/18 09/14/18 09/14/18 21:18 15:20 12:14 POC Glucose 242 H 210 H 343 H 09/14/18 05:51 POC Glucose 322 H Phys Exam - Physical Examination Constitutional: NAD HEENT: PERRLA, oral pharynx no lesions Incisions dressed Respiratory: clear to auscultation bilateral Cardiovascular: RRR Gastrointestinal: soft, non-tender Musculoskeletal: no edema Neurological: moves all 4 limbs Some sensation abnormality RUE "feels like needles" Psychiatric: A&O x 3 Skin: no rash Dx/Plan (1) Tobacco dependence Code(s): F17.200 - NICOTINE DEPENDENCE, UNSPECIFIED, UNCOMPLICATED Status: Chronic Comment: Encourage tobacco cessation, especially in context of fusion (2) Constipation due to opioid therapy Code(s): K59.03 - DRUG INDUCED CONSTIPATION; T40.2X5A - ADVERSE EFFECT OF OTHER OPIOIDS, INITIAL ENCOUNTER Status: Acute Comment: Multiple agents added (3) Hyponatremia Code(s): E87.1 - HYPO-OSMOLALITY AND HYPONATREMIA Status: Acute Comment: Noted 1/3, ordered AML (4) Spinal stenosis in cervical region Code(s): M48.02 - SPINAL STENOSIS, CERVICAL REGION Status: Acute Comment: POD #4 s/p ACDF/PCDF C5-C6. Continue PT. Referrals made to facilities closer to his home. (5) DM2 (diabetes mellitus, type 2) Status: Chronic Comment: Lantus titrated to 50units. Likely combination of steroids/surgery recovery. Tells me at home runs 150s. Check HgA1c, may be much more poorly controlled at baseline than he is aware of. On metformin, alogliptan as well - Plan cont current plan of care, plan discussed w/ family, out of bed/ambulate * See plan above. Check labs in AM.
[2018-09-14] MEDS: Morphine 4 MG/ML VIAL SLOW IVP PRN (23:34)
[2018-09-14] MEDS: Senokot S 8.6-50 MG TAB PO SCH (23:36)
[2018-09-15] MEDS: HYDROcodone/Acetaminophen 10/325 mg Tablet PO PRN ×2 (03:41→09:02)
[2018-09-15] MEDS: Ondansetron PF 4 MG/2 ML Vial IVP PRN (05:02)
[2018-09-15] MEDS: Morphine 4 MG/ML VIAL SLOW IVP PRN (05:02)
[2018-09-15] MEDS: HumaLOG 300 UNITS/3 ML VIAL SC PRN ×3 (06:05→21:39)
[2018-09-15 08:09] LABS: #Basophils 0.1 thou/uL (0.0-0.2); #Eosinphils 0.3 thou/uL (0.0-0.7); #Lymphocytes 2.5 thou/uL (1.20-3.40); #Monocytes 0.8 thou/uL (0.11-0.59); #Neutrophils 8.9 thou/uL (1.40-6.50); %Basophils 0.5 % (0.0-1.0); %Eosinophils 2.4 % (0.0-10.0); %Lymphocytes 19.8 % (21.0-51.0); %Monocytes 6.5 % (0.0-10.0); %Neutrophils 70.8 % (42.0-75.0); Hemoglobin 11.3 g/dL (14.0-18.0); Mean Corpuscular HGB CONC 34.1 g/dL (32.0-36.0); Mean Corpuscular Hemoglobin 29.2 pg (27.0-31.0); Mean Corpuscular Volume 85.6 fL (78.0-98.0); Mean Platelet Volume 6.8 fL (7.4-10.4); Platelet Count 252 thou/uL (130-400); RBC Distribution Width 12.1 % (11.5-14.5); Red Blood Cell (RBC) Count 3.86 mill/uL (4.70-6.10); White Blood Cell (WBC) Count 12.6 thou/uL (4.8-10.8)
[2018-09-15 08:24] LABS: Anion Gap 15 mmol/L (10-20); BUN (Urea Nitrogen) 15 mg/dL (8.9-20.6); Calc. Creatinine Clearance 167 mL/min (70-130); Calcium 9.1 mg/dL (7.8-10.44); Carbon Dioxide 26 mmol/L (22-29); Chloride 93 mmol/L (98-107); Estimated GFR-MDRD Greater than 90; Glucose 264 mg/dL (70-105); Potassium 4.7 mmol/L (3.5-5.1); Sodium 129 mmol/L (136-145)
[2018-09-15 08:35] LABS: Hemoglobin A1c 10.5 % (4.0-6.0)
[2018-09-15] MEDS: Gabapentin 400 MG CAP PO SCH ×3 (08:59→20:50)
[2018-09-15] MEDS: metFORMIN 500 MG TAB PO SCH ×2 (08:59→18:41)
[2018-09-15] MEDS: Cephalexin 250 MG CAP PO SCH ×4 (09:00→20:50)
[2018-09-15] MEDS: Alogliptin 6.25 MG TAB PO SCH (09:00)
[2018-09-15] MEDS: Insulin Glargine 50 UNITS in Pre-Filled Syringe 1 EACH SC SCH (09:00)
[2018-09-15] MEDS: Senokot S 8.6-50 MG TAB PO SCH ×2 (09:01→20:53)
[2018-09-15] MEDS: Nicotine 21 MG PATCH TD SCH (09:01)
[2018-09-15] MEDS ORDERED: Polyethylene Glycol 3350 17 GM Packet PO PRN (09:38)
--- NOTE | 2018-09-15 17:43 | PDOC.EVN ---
Event Note - Event Note Event Note: chart reviewed in detail will consult nephro for worsening hyponatremia w/o specific cause. on NS.cont Cont Lantus,metforminn and Alogliptin.BS uncontrolled IM team will follow
[2018-09-15] MEDS: Sodium Chloride 0.9% 1,000 ML IV SCH (19:10)
[2018-09-15 19:53] LABS: Osmolality, Urine 605 mOsm/kg (300-900)
[2018-09-15 19:59] LABS: Sodium, Urine 108 mmol/L (Not Available)
[2018-09-16] MEDS: tiZANidine HCl 4 MG TAB PO PRN ×3 (00:58→15:39)
[2018-09-16] MEDS: Morphine 4 MG/ML VIAL SLOW IVP PRN ×3 (00:58→12:33)
--- NOTE | 2018-09-16 01:03 | CON ---
DATE OF CONSULTATION: CONSULTING PHYSICIAN: Dr. Hewitt. REQUESTING PHYSICIAN: Dr. Cheung. REASON FOR CONSULTATION: Hyponatremia. IMPRESSION: Hyponatremia. This is possibly due to dilutional effect of excessive free water intake. However, I cannot completely rule out the component of syndrome of inappropriate antidiuretic hormone secretion. PLAN: 1. I advised patient to cut back on free water intake. 2. Discontinue IV fluids. 3. Urine osmolality and sodium to classify water per hyponatremia. HISTORY OF PRESENT ILLNESS: A 43-year-old gentleman who presented here with severe cervical myelopathy, who has been noted to have worsening hyponatremia. At this time of dictation, sodium has drifted down to 129. As a result of this, decision is being taken to involve Renal in the management of this case. The patient did admit to drinking quite a bit of water. The patient does also have a component of pseudohyponatremia in the context of suboptimally controlled blood sugar level. PAST MEDICAL HISTORY: Significant for diabetes mellitus and joint effusion. MEDICATIONS: Reviewed in [employer]. REVIEW OF SYSTEMS: As documented in the body of the history. ALLERGIES: NO KNOWN DRUG ALLERGIES. SOCIAL HISTORY: Significant for tobacco use. No alcohol or illicit drug use. PHYSICAL EXAMINATION: GENERAL: The patient was found not to be in any obvious distress. VITAL SIGNS: With the following vital signs; afebrile with temperature 97.9, pulse 106, respiratory rate of 20, O2 saturations are 99% with blood pressure 145/78. HEENT: Unremarkable. CARDIOVASCULAR SYSTEM: First and second heart sounds were heard. RESPIRATORY: Clear to auscultation. DIGESTIVE SYSTEM: Revealed a benign abdomen. Positive bowel sounds. EXTREMITIES: No peripheral edema. SKIN: No new gross rash. LYMPHATICS: No peripheral lymphadenopathy. SUMMARY: A 43-year-old gentleman with worsening hyponatremia. Thank you for this consultation. We will follow with you. Job ID: [id number]
[2018-09-16] MEDS: Sodium Chloride 0.9% 1,000 ML IV SCH ×2 (03:45→17:53)
[2018-09-16] MEDS: HumaLOG 300 UNITS/3 ML VIAL SC PRN ×3 (06:37→18:51)
[2018-09-16] MEDS: Gabapentin 400 MG CAP PO SCH ×3 (08:31→20:53)
[2018-09-16] MEDS: HYDROcodone/Acetaminophen 10/325 mg Tablet PO PRN ×2 (08:32→12:24)
--- NOTE | 2018-09-16 09:55 | PRG ---
DATE OF SERVICE: 09/16/2018 SUBJECTIVE: The patient is a 43-year-old male, postoperative day #6 status post C5-C7 anterior and posterior decompression and fusion. He has been working regularly with physical therapy and has had improvement in his ambulation. He reports he is able to walk up to 400 feet with a walker. He has still some dysesthesias in the upper and lower extremities, however, this is also improving with time. He is also being followed by the medical team and is noted to have developed hyponatremia. Nephrology was also recently consulted and they feel that this is likely due to dilutional effect of excessive free water intake, however, inappropriate ADH hormone secretion could not be ruled out. They have discontinued his IV fluids and recommended to cutting back on his free water intake. Today the patient is sitting up in bed comfortably. Free active range of motion of all extremities.. He has 5/5 strength in the upper extremities. In the lower extremities he also have 5/5 strength will sitting in the chair. Sensation is intact to light touch. He is hyperreflexive throughout.Incisions dry. Dressings removed. Initially, we are anticipating inpatient rehabilitation, however, considering the patient's progress, he is leaning toward returning home and doing outpatient physical therapy. Neurosurgery feels that this would be appropriate. We will have the Medication Team as well as Nephrology continue to follow his sodium issues and possible discharge tomorrow depending on these and his progress. Job ID: [id number] [facility]
[2018-09-16 10:42] LABS: Anion Gap 13 mmol/L (10-20); BUN (Urea Nitrogen) 15 mg/dL (8.9-20.6); Calc. Creatinine Clearance 163 mL/min (70-130); Calcium 9.5 mg/dL (7.8-10.44); Carbon Dioxide 29 mmol/L (22-29); Chloride 92 mmol/L (98-107); Estimated GFR-MDRD Greater than 90; Glucose 274 mg/dL (70-105); Potassium 4.4 mmol/L (3.5-5.1); Sodium 130 mmol/L (136-145)
[2018-09-16] MEDS: Senokot S 8.6-50 MG TAB PO SCH ×2 (11:48→20:01)
[2018-09-16] MEDS: Nicotine 21 MG PATCH TD SCH (11:48)
--- NOTE | 2018-09-16 11:54 | PDOC.EVN ---
Event Note - Event Note Event Note: Attempted to see pt melaniegraham today but not in room.Nurse reports that he gone down for smoke ,perhaps. Sodium better with Free H2O restriction.Tolvaptan per nephro. Change lantus dose for high blood sugar OK to DC anytime from IM perspective.
[2018-09-16] MEDS: Cephalexin 250 MG CAP PO SCH ×4 (12:25→20:53)
[2018-09-16] MEDS: metFORMIN 500 MG TAB PO SCH ×2 (12:25→18:51)
[2018-09-16] MEDS: Alogliptin 6.25 MG TAB PO SCH (12:25)
[2018-09-16] MEDS: Tolvaptan 15 MG TAB PO SCH (12:26)
[2018-09-16] MEDS: Insulin Glargine 50 UNITS in Pre-Filled Syringe 1 EACH SC SCH (12:26)
[2018-09-16] MEDS: Ondansetron PF 4 MG/2 ML Vial IVP PRN (12:32)
--- NOTE | 2018-09-16 20:20 | PRG ---
DATE OF SERVICE: SUBJECTIVE: The patient was seen and examined. Noted with following vital signs. OBJECTIVE: VITAL SIGNS: Afebrile, temperature 98.2, pulse 98, respiratory rate of 16, O2 saturation of 97%, and blood pressure 149/94. HEENT: Unremarkable. CARDIOVASCULAR SYSTEM: First and second heart sounds were heard. RESPIRATORY SYSTEM: Clear to auscultation. DIGESTIVE SYSTEM: Benign abdomen. Positive bowel sounds. EXTREMITIES: No peripheral edema. SKIN: No new gross rash. LYMPHATICS: No peripheral lymphadenopathy. LABORATORY INVESTIGATIONS: Sodium 130 . IMPRESSION: Hyponatremia, this is likely in the context of SIADH. PLAN: 1. We will start this patient on anti-ADH medication. 2. Serial sodium monitoring to evaluate the response to anti-ADH. 3. Further management will be dependent on the clinical course. Please restrict the free water intake in this patient. Job ID: [id number]
[2018-09-16] MEDS ORDERED: Insulin Glargine 30 UNITS in Pre-Filled Syringe 1 EACH SC SCH (21:00)
[2018-09-16 21:24] LABS: Sodium 130 mmol/L (136-145)
[2018-09-17] MEDS: HYDROcodone/Acetaminophen 10/325 mg Tablet PO PRN ×3 (00:20→16:08)
[2018-09-17] MEDS: tiZANidine HCl 4 MG TAB PO PRN ×3 (00:20→16:08)
[2018-09-17] MEDS: Morphine 4 MG/ML VIAL IV PRN ×2 (00:21→16:10)
[2018-09-17] MEDS: Ondansetron PF 4 MG/2 ML Vial IVP PRN ×2 (00:23→16:19)
[2018-09-17] MEDS ORDERED: Insulin Glargine 20 UNITS in Pre-Filled Syringe 1 EACH SC SCH (09:00)
[2018-09-17] MEDS: Nicotine 21 MG PATCH TD SCH (09:06)
[2018-09-17] MEDS: metFORMIN 500 MG TAB PO SCH ×2 (09:09→16:08)
[2018-09-17] MEDS: Alogliptin 6.25 MG TAB PO SCH (09:09)
[2018-09-17] MEDS: Gabapentin 400 MG CAP PO SCH ×2 (09:09→16:30)
[2018-09-17] MEDS: Cephalexin 250 MG CAP PO SCH ×3 (09:09→16:08)
[2018-09-17] MEDS: Senokot S 8.6-50 MG TAB PO SCH (09:10)
[2018-09-17 11:07] LABS: Anion Gap 16 mmol/L (10-20); BUN (Urea Nitrogen) 21 mg/dL (8.9-20.6); Calc. Creatinine Clearance 119 mL/min (70-130); Calcium 9.9 mg/dL (7.8-10.44); Carbon Dioxide 27 mmol/L (22-29); Chloride 94 mmol/L (98-107); Estimated GFR-MDRD 68; Glucose 327 mg/dL (70-105); Potassium 4.7 mmol/L (3.5-5.1); Sodium 132 mmol/L (136-145)
--- NOTE | 2018-09-17 11:21 | PDOC.EVN ---
Event Note - Event Note Event Note: Tried to see pt again this morning and unfortunately he is not in room again.Care discussed w RN Will change lantus to Novolin as it is cheaper.refer to [facility] for PCP set up and medication help. OK to DC home from IM stand point. Sodium improved after Tolvaptan.Restrict free H2O
[2018-09-17] MEDS: HumaLOG 300 UNITS/3 ML VIAL SC PRN ×2 (12:08→16:07)
[2018-09-17] MEDS: Tolvaptan 15 MG TAB PO SCH (12:08)
[2018-09-17 12:32] VITALS: BP 114/74; TEMP 97.8
[2018-09-17] MEDS: Mag-Al 1200 mg/1200 mg/30 ML UDCUP PO PRN (14:19)
--- NOTE | 2018-09-18 04:05 | DIS ---
DATE OF ADMISSION: 09/08/2018 DATE OF DISCHARGE: 09/17/2018 HOSPITAL COURSE: The patient is a 43-year-old male with a past medical history of diabetes, who presented to the emergency department on 09/08/2018, for lower extremity weakness, difficultly walking, and bilateral upper and lower extremity dysesthesias. He was evaluated with MRI imaging and found to have significant stenosis from C5-C7. He underwent C5-C7 anterior and posterior decompression and fusion on 09/10/2018. Following his surgery, he was transitioned to the [facility] where his pain was well controlled with p.o. medications, he was tolerating a regular diet, and he was voiding appropriately. His incisions have remained dry and intact. He had significant improvement in his mobility and was able to walk throughout the hallways with time progressed with the assistance of Physical Therapy. We initially anticipated that he would need inpatient rehabilitation. However, considering his significant process, the patient elected to go home with outpatient therapy. During his admission course, the patient did have the development of some hyponatremia. He was evaluated by the Medical Service as well as Nephrology. Free water was restricted and the patient was also treated with tolvaptan. His sodium improved, and on recheck today, it is 132. I have discussed with the Medical Team who feels that he is appropriate for dismissal to home. The patient will follow up with his PCP with regard to his electrolyte imbalances with a recheck on Thursday. With regard to his cervical spine, we will plan to follow up with the patient in 2 weeks. I will provide him with outpatient orders for physical therapy and occupational therapy. He has also been provided prescriptions for hydrocodone, muscle relaxer, and Zanaflex. I have discussed home care precautions and I am available for any additional needs. Please reach out to Neurosurgery for additional questions or concerns. Job ID: [id number]
--- NOTE | 2018-09-18 20:30 | EKG ---
Test Reason : Blood Pressure : / mmHG Vent. Rate : 104 BPM Atrial Rate : 104 BPM P-R Int : 146 ms QRS Dur : 078 ms QT Int : 336 ms P-R-T Axes : 040 031 034 degrees QTc Int : 441 ms Sinus tachycardia Otherwise normal ECG Confirmed by BE MCCLAIN, TOÑO ([id number]), commissioning editor JAZIEL KAUR ([id number]) on 09/18/2018 8:29:58 PM Referred By: Confirmed By:TOÑO LR MD
== END 2018-09-17 16:20 | disposition home or self-care (01) | DRG 454 ==
LOC: ERS 15:47 → SURG B 22:26
PROVIDERS: ADMIT Neurological Surgery; ATTEND Neurological Surgery
PROC: 0RG20A0 Fusion of 2 or more Cervical Vertebral Joints with Interbody Fusion Device, Anterior Approach, Anterior Column, Open Approach (ICD-10-PCS; principal; 2018-09-10)
PROC: 0RG2071 Fusion of 2 or more Cervical Vertebral Joints with Autologous Tissue Substitute, Posterior Approach, Posterior Column, Open Approach (ICD-10-PCS; 2018-09-10)
PROC: 0RB30ZZ Excision of Cervical Vertebral Disc, Open Approach (ICD-10-PCS; 2018-09-10)
PROC: 00NW0ZZ Release Cervical Spinal Cord, Open Approach (ICD-10-PCS; 2018-09-10)
DX: M48.02 Spinal stenosis, cervical region (principal); E22.2 Syndrome of inappropriate secretion of antidiuretic hormone; G99.2 Myelopathy in diseases classified elsewhere; F17.210 Nicotine dependence, cigarettes, uncomplicated; E87.6 Hypokalemia; E11.65 Type 2 diabetes mellitus with hyperglycemia; K59.03 Drug induced constipation; T38.0X5A Adverse effect of glucocorticoids and synthetic analogues, initial encounter; T40.2X5A Adverse effect of other opioids, initial encounter; Y92.239 Unspecified place in hospital as the place of occurrence of the external cause
CPT/HCPCS: 36415; 36416; 72141; 72146; 76000; 80048; 80053; 80306; 80307; 81003; 81015; 82550; 83036; 83935; 84300; 85025; 85610; 85730; 93005; 96374; 96375; 96376; C1713; C1776; J1100; J1170; J1815; J1885; J2001; J2060; J2270; J2405; J2704; J3010; J3370; J3490

== ENCOUNTER 2018-10-06 15:14 | Outpatient (CLI) | payer MEDICAID ==
--- NOTE | 2018-10-06 15:40 | RAD ---
CERVICAL SPINE THREE VIEWS: History: Neck pain. Prior surgery. FINDINGS: Anterior fixation plate at the C5-6-7 levels. Metallic markers associated with interbody fusion mater ial within the confines of the disc spaces. Right posterior fixation screws and vertical delores at the C 5-6-7 levels. Vertebral body height and alignment are maintained. Cervicothoracic junction is intact. No perihardware lucency. IMPRESSION: Post-operative fixation lower cervical spine without evidence of hardware complication. POS: ISELA
== END 2018-10-06 15:15 | disposition home or self-care (01) ==
LOC: TBSIIMAG 15:14
PROVIDERS: ATTEND Neurological Surgery
DX: M54.2 Cervicalgia (principal); Z98.890 Other specified postprocedural states
CPT/HCPCS: 72040

== ENCOUNTER 2018-11-02 15:42 | Outpatient (CLI) | payer MEDICAID ==
--- NOTE | 2018-11-02 16:03 | RAD ---
CERVICAL SPINE THREE VIEWS: Comparison: 10-06-18 History: Cervical fusion. Neck pain. FINDINGS: AP, lateral, swimmer's and open mouth odontoid views of the cervical spine shows the patient to be st atus post anterior and posterior fusion of C5 through C7. Intervening disc spaces are seen. No prever tebral soft tissue swelling is seen. No perihardware lucency is seen. Vertebral bodies demonstrate no rmal alignment without subluxation. IMPRESSION: Post-surgical changes of the cervical spine without evidence of complication. POS: ISELA
== END 2018-11-02 15:43 | disposition home or self-care (01) ==
LOC: TBSIIMAG 15:42
PROVIDERS: ATTEND Neurological Surgery
DX: M48.02 Spinal stenosis, cervical region (principal); M47.12 Other spondylosis with myelopathy, cervical region; Z98.890 Other specified postprocedural states
CPT/HCPCS: 72040